=== PATIENT | female | born 1970 | race African-American/Black ===

== ENCOUNTER 2017-06-06 14:54 | Emergency (ER) | payer BC ==
[2017-06-06] MEDS ORDERED: Ketorolac Tromethamine 30 MG/ML VIAL ONE (17:08)
== END 2017-06-06 16:31 | disposition home or self-care (01) ==
LOC: ERS 14:54
DX: B34.9 Viral infection, unspecified (principal); I10 Essential (primary) hypertension
CPT/HCPCS: 96372; J1885